=== PATIENT | male | born 1965 | race Caucasian/White ===

== ENCOUNTER 2018-10-17 19:25 | Emergency (ER) | payer OTHER, MEDICAID ==
[~2018-10-17] VITALS: Ht 180.3 cm; Wt 86.4 kg
[2018-10-17 19:44] VITALS: Ht 180.3 cm; Wt 86.4 kg
[2018-10-17 20:00] VITALS: BP 120/79; PULSE 78; RESP 19
--- NOTE | 2018-10-17 21:15 | ERD ---
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 The patient has a BLOCK ENGRAVER shunt in. The patient had an [facility] of [facility] brain [facility] today and the radiologist thought that the MRI may have turned off electronic shunt device. So they sent the patient to the ER. They came to [facility] because his custodial facility is closer to here than it is at [facility] ROS All systems reviewed and are negative except as per history of present illness. Allergies Allergies: Coded Allergies: No Known Allergy (Unverified , 10/27/17) PMhx/Soc History of Surgery: Yes (BLOCK ENGRAVER shunt placement,trach,gastrostomy) Anesthesia Reaction: No Hx Neurological Disorder: Yes (Nontraumatic cerebral hemorrhage 07/30/2017,obstructive hydrocephalus) Hx Respiratory Disorders: Yes (respiratory failure,hypoxia,hypercapnia,previous vent) Hx Cardiac Disorders: Yes (essential HTN,A-fib) Hx Psychiatric Problems: No Hx Miscellaneous Medical Probl: Yes (anemia,fatty liver,kidney failure,vanco- resistance,pressure ulcer,dysphagia) Smoking Status: Unknown if ever smoked FmHx Family History: No coronary disease Physical Exam Vitals Vital Signs Date Temp Pulse Resp B/P (MAP) Pulse Ox O2 O2 Flow FiO2 Time Delivery Rate 10/17/18 78 19 120/79 97 5.0 20:00 (93) 10/17/18 78 20 97 Aerosol 5.0 28 19:56 T Tube 10/17/18 100 5.0 28 19:56 10/17/18 98.4 77 19 125/83 98 19:44 (97) Physical Exam Const: Well-developed, well-nourished, non-conversive and noncommunicable Head: Atraumatic, normocephalic Eyes: Normal Conjunctiva, PERRLA, EOMI, normal sclera, no nystagmus ENT: Normal External Ears, Nose and Mouth, moist mucus membranes. Neck: Full range of motion. No meningismus, no lymphadenopathy, tracheostomy is intact no signs of infection. Resp: Clear to auscultation bilaterally, no wheezing, rhonchi, rales Cardio: Regular rate and rhythm, no murmurs, S1 S2 present Abd: [Soft, non tender x 4, non distended. Normal bowel sounds, Skin: No petechiae or rashes, no ecchymosis , no maculopapular rash Back: Not examined Ext: No cyanosis, or edema, sore Dante Neur: [Awake and alert, limited exam due to mental status Psych: Unable to obtain Procedures/MDM Spoke with our neurosurgeon on-call, Dr. Fitch, also spoke with the physician pediatric physician assistant on-call for the patient's neurosurgeon who placed the shunt Dr. SPARKS, both state the patient needs to be seen in the office for follow-up to have the shunt checked with the device to see if that settings have changed but that the device will not turn off. There is no acute need for this there is a several day window to get this checked out. Discussed this with the and will just send him back to the custodial facility with follow-up in the office per the physician pediatric physician assistant Departure Diagnosis: Primary Impression: Shunt malfunction Encounter type: initial encounter Qualified Codes: T85.618A - Breakdown (mechanical) of other specified internal prosthetic devices, implants and grafts, initial encounter Condition: Stable Patient Instructions: Scale Tank Operator Shunt Additional Instructions: YOUR NEUROSURGEON NEEDS TO SEE YOU TO CHECK THE SHUNT FOR A CHANGE IN SETTINGS WITHIN THE NEXT 2-3 DAYS MOISÉS CLIFFORD DO October 17, 2018 21:15
== END 2018-10-17 22:59 | disposition home or self-care (01) ==
LOC: E/R 19:25
DX: T85.618A Breakdown (mechanical) of other specified internal prosthetic devices, implants and grafts, initial encounter (principal); R40.2122 Coma scale, eyes open, to pain, at arrival to emergency department; R40.2212 Coma scale, best verbal response, none, at arrival to emergency department; R40.2322 Coma scale, best motor response, extension, at arrival to emergency department; I10 Essential (primary) hypertension; Y75.2 Prosthetic and other implants, materials and neurological devices associated with adverse incidents
CPT/HCPCS: 36415; 99283